=== PATIENT | male | born 1975 | race Caucasian/White ===

== ENCOUNTER 2017-01-13 11:23 | Day surgery (SDC) | payer SELFPAY ==
[2017-01-11 12:32] LABS: HEMATOCRIT 41.6 % (40.0-51.0); HEMOGLOBIN 15.5 g/dL (13.6-17.8)
[2017-01-11 12:48] LABS: BUN (BLOOD UREA NITROGEN) 9 MG/DL (6-23); CALCIUM, SERUM 9.8 MG/DL (8.5-10.4); CHLORIDE, SERUM 85 MMOL/L (96-112); CO2 (CARBON DIOXIDE) 29 MMOL/L (24-34); CREATININE 0.84 MG/DL (0.70-1.30); GFR AFRICAN AMERICAN 126 ML/MIN (>=60); GFR NON AFRICAN AMERICAN 109 ML/MIN (>=60); GLUCOSE, SERUM 123 MG/DL (60-99); POTASSIUM, SERUM 3.5 MMOL/L (3.5-5.3); SODIUM, SERUM 123 MMOL/L (135-148)
--- NOTE | ~2017-01-13 | OP ---
Record Of Operation [facility] [address] [place]. [address] NAME: CUAUHTEMOC VIRGEN : 75 STATUS : [facility]#: [id number] AGE: 41 ADM/REG DATE : 01/13/17 MR#: [id number] REPORT SERV DATE: 01/13/17 DICTATED BY: NORBERTO CHOI DATE: 01/13/17 REPORT STATUS : Draft TRANSCRIBED BY: DANIELA DATE: 01/13/17 DATE OF PROCEDURE: 01/13/2017 PROCEDURE: Left cartilage tympanoplasty. PREOPERATIVE DIAGNOSES: 1. Canal wall cholesteatoma, left ear. 2. Chronic perforation, left ear. POSTOPERATIVE DIAGNOSES: 1. Canal wall cholesteatoma, left ear. 2. Chronic perforation, left ear. ANESTHESIA: General endotracheal. COMPLICATION: None. FINDINGS: The patient was taken to the OR, placed in supine position. Then was anesthetized, prepped and draped in standard fashion. The external auditory canal and postauricular area injected with 1% Xylocaine with epinephrine. Canal and middle ear were irrigated with Betadine and suction dried. A combination of microscope and 0 degree video telescopes were used. The patient was noted to have canal wall cholesteatoma anteriorly just lateral to the area of the anulus extending toward the temporomandibular joint. This still appeared to be bony covered in the bottom after all the cholesteatoma was removed. Some of the cholesteatoma extended through the perforation into the middle ear, though this appeared to be clearly coming from the canal and not from the middle ear out. A cartilage graft was harvested from the tragus. The muscle lateral portion of the tragal cartilage preserved. Incision was closed with interrupted 5-0 chromic suture. The perichondrium was removed from one side of the graft. The graft was fashioned to the diameter approximately 8 mm with a central 1 mm strip removed. This was placed in underlay fashion medial to the malleus and covered the perforation. This was placed after tympanomeatal flap was raised. A small amount of Gelfoam was placed in the middle ear cavity. A tympanomeatal flap was replaced with complete closure of the perforation noted. A small amount of grafting material used to fill the defect of the canal wall cholesteatoma and this was placed underneath the tympanomeatal flap and graft. Gelfoam then was placed lateral to the tympanomeatal flap and graft, and external auditory canal was filled with Gelfoam. Bactroban ointment placed in the meatus. The patient then was awakened, extubated, and taken to the recovery room in good condition. In summary, the patient had a significant defect of the anterior canal wall of the canal wall cholesteatoma. The patient had a 30% inferior perforation, which was repaired with a cartilage underlay graft. Ossicular chain appeared to be intact. CS/MODL Record Of [address] [address] NAME: CUAUHTEMOC VIRGEN : 75 STATUS : [facility] PAT#: [id number] AGE: 41 ADM/REG DATE : 01/13/17 MR#: [id number] REPORT SERV DATE: 01/13/17 DICTATED BY: NORBERTO CHOI DATE: 01/13/17 REPORT STATUS : Draft TRANSCRIBED BY: MODYumiko DATE: 01/13/17 Norberto Choi M.D. / [id number] CC: Norberto Choi M.D.
[~2017-01-13 11:23] MED LIST: ASAB PO; HYDROCHLOROT25 MG PO; LOP50 PO; ZESTRIL10 MG PO
== END 2017-01-13 16:25 | disposition home or self-care (01) ==
LOC: SDC 11:23
PROVIDERS: Otolaryngology
PROC: 09U Ear, Nose, Sinus, Supplement (ICD-10-PCS; principal; 2017-01-13 12:45)
DX: H72.92 Unspecified perforation of tympanic membrane, left ear (principal); H60.42 Cholesteatoma of left external ear; I10 Essential (primary) hypertension; F17.210 Nicotine dependence, cigarettes, uncomplicated; Z79.82 Long term (current) use of aspirin; Z98.890 Other specified postprocedural states
CPT/HCPCS: 80048; 84295; 85014; 85018; 88304; 93005; A9270-GY; C1781; J2250; J2405; J2710; J3010